=== PATIENT | male | born 1965 | race Caucasian/White ===

== ENCOUNTER 2024-10-17 12:18 | Emergency (ER) | payer OTHER, SELFPAY ==
[2024-10-17 12:21] VITALS: BP 117/65
--- NOTE | 2024-10-17 14:18 | EDRN ---
Harshil JIMENEZ in room w/ pt at this time.
--- NOTE | 2024-10-17 14:20 | ED.GENMED ---
History of Present Illness
General
Chief Complaint: Skin Problem
Source: patient
Exam Limitations: none
Time Seen by Provider: 10/17/24 13:58
History of Present Illness
History of Present Illness:
59yoM with a history of type 2 diabetes, hypertension, hyperlipidemia, and tobacco use presenting for evaluation of right great toe redness. Patient arrives with a wound to his right great toe but he is unsure how long this has been there. He
started to notice pain, redness, and swelling over the past 48 hours. Symptoms have been gradually worsening. He is having chills but denies any fevers. His glucose has been fluctuating over the past few days between 70 and 700.
Past History
Past History
ED Past Medical History: CAD, COPD, CVA (left sided weakness-minimal deficet), Hypercholesterolemia, IDDM, IA and Other (TIAs, diabetes, peripheral neuropathy, diabetic retinopathy,)
ED Past Surgical History: Other (Amputation L great toe)
Social History
Tobacco: Smoker
Alcohol: Occasional
Drug: None
Personal:
Living: with family
Family History
Family History: Diabetes
Phy Exam
General Physical Exam
General Presentation: well appearing and no apparent distress
General Skin: warm and dry
General Habitus: normal
General Mental: alert
ENT Exam
ENT Exam: normocephalic
Pulmonary Exam
Pulmonary Exam: no respiratory distress
Neurological Exam
Neurological Exam: alert
[place] Coma Scale
Eye Opening: Spontaneous
Verbal Response: Oriented
Motor Response: Obeys Commands
GCS Total Score: 15
Skin Exam
Skin Exam: other (Wound noted to plantar surface of R great toe with surrounding erythema/warmth extending to the dorsum of the foot. No drainage, fluctuance, or crepitus. 2+ DP pulse.)
Psychiatric Exam
Psychiatric Exam: normal mood/affect
Course
Orders/Labs/Results
Orders:
Orders
10/17/24 14:19
Bedside Glucose- Treatment ONCE
CR Toe(s) Min 2 Vw Right Urgent
Comment:
Reason For Exam: wound
10/17/24 14:50
CRP [C-Reactive Protein] Urgent
Complete Blood Count/With Diff Urgent
Comprehensive Metabolic Panel Urgent
ESR [Erythrocyte Sed Rate] Urgent
Lactic Acid Urgent
Blood Culture Q30M
ADY Source: Blood/Venous
Specimen Description:
10/17/24 15:39
Blood Culture Q30M
ADY Source: Blood/Venous
Specimen Description:
10/17/24 15:46
0.9% Sodium Chloride 1000 ml [Nss] 1,000 ml IV BOLUS
Cefepime HCl [Maxipime] 2,000 mg IV NOW STA
Vancomycin [Vancocin] 1,500 mg 0.9% Sodium Chloride 500 ml [Nss] 500 ml IV NOW
10/17/24 16:41
Admit/Transfer Patient As Directed
Co-Sign Provider:
Level of Care: Inpatient admission
Assign to:: Medical/Surgical
Physician / Group: julianna
Diagnosis: right toe ulcer/osteomyelitis
Reason for Hospitalization: right toe ulcer/osteomyelitis
Expected length of stay greater than two midnights?: Yes
ELOS- Estimated Length of Stay in days: 2
I certify the patient meets the requirements for IP care: Yes
PRN Pain Medication Management As Directed
May give lesser potent ordered pain med per pt: Yes
preference::
Protocol:: Medication orders for pain may be administered in a
manner that supports deferring to patient preference
when the pt is:
- Requesting an ordered lesser potent pain medication.
Least to most potent pain medications are defined
as: acetaminophen < NSAID < tramadol < opioids
(morphine, oxycodone, hydromorphone).
- Requesting a lesser dose of the same medication IF
ORDERED.
- Requesting a less intrusive route of administration
if both routes are prescribed by the provider (PO <
IV).
10/17/24 16:42
Code Status As Directed
Resuscitation Status: Full Code
10/17/24 17:37
Dextrose 50%-Water [Dextrose 50% Syringe] 12.5 grams IV [id number] PRN
Glucagon [GlucaGen] 1 mg IM PRN PRN
10/18/24 07:30
Insulin Aspart Corrective Low [Novolog Flexpen-Low Resistance] See Protocol SC AC
Insulin Regular, Human Pen [NovoLIN R Flexpen] 6 units SC AC
Abnormal Lab Results
10/17/24 10/17/24
14:24 14:50
Lymphocytes % 17.2 L %
(20.5-51.1)
ESR 26 H mm/hour
(0-20)
Sodium 129 L mmol/L
(135-145)
Chloride 93 L mmol/L
(98-107)
Carbon Dioxide 32 H mmol/L
(22-30)
Creatinine 0.6 L mg/dL
(0.7-1.3)
Glucose 373 H mg/dl
(70-99)
C-Reactive Protein 48.80 H mg/L
(0.0-10.00)
POC Glucose 420 H mg/dl
(70-99)
10/17/24 14:50
10/17/24 14:50
Vital Signs
Initial and Last Documented VS:
Initial Vital Signs
Temp Pulse Resp BP Pulse Ox
98.8 F 87 16 117/65 100
10/17/24 12:21 10/17/24 12:21 10/17/24 12:21 10/17/24 12:21 10/17/24 12:21
Last Documented Vital Signs
Temp Pulse Resp BP Pulse Ox
97.7 F 87 20 126/64 99
10/17/24 17:51 10/17/24 17:51 10/17/24 17:51 10/17/24 17:51 10/17/24 17:51
MDM/Problems Addressed
Differential Diagnosis Includes:
59yoM here with R great toe redness x 2 days. +Chills. Hx of diabetes. Vital signs stable. There is a wound noted to the plantar surface of the right great toe with surrounding cellulitis. No drainage or crepitus noted. Palpable DP pulse present
in right foot. Differential diagnosis includes but is not limited to: Cellulitis, osteomyelitis, sepsis
Initial ED plan: Check CBC, CMP, lactate, ESR/CRP, and toe x-ray.
*Pulse Oximetry
SaO2: 100
Oxygen Mode of Delivery: Room air
Patient hypoxic: no (100%)
*Critical Care Note
Total Time (30-74mins, 75-104mins- exclusive of procedures): Not Applicable
Update Note
Update Note:
Both ESR and CRP are elevated. White count and lactate normal. Glucose 373. X-rays show erosion at the proximal phalanx of the great toe which may indicate acute osteomyelitis. IV cefepime and vancomycin ordered. Patient admitted for further
management.
ED Attending Note
-
Portions of this chart may have been created with voice recognition software.� Occasional wrong word or��sound alike� substitutions may have occurred due to the inherent limitations of voice recognition software.
Discharge Plan
Departure
Patient Disposition: Admit
Date of Disposition: 10/17/24
Time of Disposition: 15:49
Presentation/result/management discussed w/ accepting MD/DO: Hospitalist
Discharge Problem:
Diabetic infection of right foot
Interventions
Interventions:
*Risk Screen - Suicide Last Done: 10/17/24 12:22
*General Assessment Last Done: 10/17/24 15:00
*Neglect/Abuse Screening Last Done: 10/17/24 12:22
*ED- Fall Risk Assessment Last Done: 10/17/24 15:00
*ED COVID-19 Vaccine History Last Done: 10/17/24 15:00
ED-Skin Assessment Last Done: 10/17/24 15:00
[2024-10-17 14:25] LABS: Glucose - Point of Care 420 mg/dl (70-99)
[2024-10-17 15:06] LABS: Hematocrit 40.8 % (39.0-52.0); Hemoglobin 14.4 g/dL (13.0-18.0); Mean Corp Hgb Conc. 35.3 g/dL (33.0-37.0); Mean Corpuscular Volume 86.6 fL (80.0-94.0); Nucleated Red Blood Cells % 0 % (-); Platelet Count 343 10^3/uL (130-400); Red Cell Dist. Width 12.1 % (11.5-14.5)
[2024-10-17 15:27] LABS: ALT (SGPT) 15 U/L (0-50); AST (SGOT) 20 U/L (17-59); Albumin 4.2 g/dl (3.5-5.0); Alkaline Phosphatase 91 U/L (38-126); Blood Urea Nitrogen 16 mg/dl (9-20); Calcium 9.7 mg/dl (8.4-10.2); Carbon Dioxide 32 mmol/L (22-30); Chloride 93 mmol/L (98-107); Glucose 373 mg/dl (70-99); Potassium 5.0 mmol/L (3.5-5.1); Sodium 129 mmol/L (135-145); Total Protein 6.7 g/dl (6.3-8.2); eGFR > 60.00
[2024-10-17 15:30] LABS: C-Reactive Protein 48.80 mg/L (0.0-10.00)
[2024-10-17 15:42] VITALS: BP 125/51
[2024-10-17 15:44] VITALS: BMI 17.6
--- NOTE | 2024-10-17 16:50 | HPS.HSE ---
Family Physician
-
Family Physician: Edin Lr
Chief Complaint
-
right toe wound infection
History of Present Illness
59-year-old male past medical history of diabetes, PAD status post toe amputation, CVA, CAD status post CABG, mild memory loss, hypertension, hyperlipidemia, tobacco use presenting for right great toe redness for the past few days with pain of the
foot.
Patient arrives with a wound of the right great toe but he is unsure how long this has been there. He started noticing pain, redness and swelling over the past 48 hours. He has chills without fever.
Blood sugars been fluctuating between 70-700. He takes 22 units of glargine in the morning and 6 units of Novolin before meals.
He states that he will get anxious and delirious in the hospital at times.
He smokes one third of a pack of cigarettes per day. Drinks alcohol occasionally.
Medical History
Past Medical History
Past Medical History: Reports Other (diabetes, PAD status post toe amputation, CVA, CAD status post CABG, mild memory loss, hypertension, hyperlipidemia, tobacco use)
Past Surgical History: Reports None
Social History
Tobacco: Smoker
Alcohol: None
Drug: None
Family History
Family History: Not pertinent
Allergies / Home Medications
Allergies reflects when Allergies were last updated in [employer].
Home Medications with original date entered in [employer]
Allergy/Medication List:
Allergies
Allergy/AdvReac Type Severity Reaction Status Date / Time
duloxetine HCl (From AdvReac SUICIDAL Verified 08/14/21 02:42
Cymbalta)
Home Medications
insulin glargine 100 unit/mL (3 mL) subcutaneous pen (Basaglar KwikPen U-100 Insulin) 22 unit SC DAILY 10/17/24
insulin regular human 100 unit/mL (3 mL) subcutaneous pen (Novolin R FlexPen) 6 unit SC AC 10/17/24
therapeutic multivitamin 1 tab PO DAILY 10/17/24
Review of Systems
-
Constitutional: Reports No Symptoms
EENT: Reports No Symptoms
Respiratory: Reports No Symptoms
Cardiac: Reports No Symptoms
Abdomen/GI: Reports No Symptoms
: Reports No Symptoms
Musculoskeletal: Reports No Symptoms
Skin: Reports See HPI
Neurological: Reports No Symptoms
Endocrine: Reports No Symptoms
Hematologic/Lymphatic: Reports No Symptoms
Psych: Reports No Symptoms
Physical Exam
Vital Signs
Vital Signs
Temp Pulse Resp BP Pulse Ox
98.8 F 64 16 125/51 99
10/17/24 12:21 10/17/24 15:42 10/17/24 15:42 10/17/24 15:42 10/17/24 15:42
Physical Exam
General: Well Developed, Well Nourished and No Apparent Distress
HEENT: NormoCephalic, Moist mucous membranes and Atraumatic
Respiratory: Clear
Cardiac: S1/S2 and Regular Rhythm; No Murmur or Rub
GI: Soft, Non Tender, Non Distended and Normal Bowel Sounds; No Organomegaly
Rectal: Deferred by Provider
Musculoskeletal: No Clubbing and No Cyanosis
Skin: Other (right toe necrotic ulcer with erythema, right foot pulses intact ); No Rash
Neuro: Nonfocal/grossly intact
Laboratory Results
-
10/17/24 14:50
10/17/24 14:50
Laboratory Results
Lactic Acid 1.4 mmol/L (0.7-2.0) 10/17/24 14:50
Total Bilirubin 0.7 mg/dl (0.2-1.3) 10/17/24 14:50
AST 20 U/L (17-59) 10/17/24 14:50
ALT 15 U/L (0-50) 10/17/24 14:50
Alkaline Phosphatase 91 U/L (38-126) 10/17/24 14:50
Data Reviewed
-
Lab Data: Labs Reviewed by me
Old Records: Reviewed
Impression/Plan
-
IMPRESSION:
PLAN:
# Right great toe wound with dry gangrene with surrounding cellulitis/osteomyelitis
#Hx of PAD with history of toe amputation
-PT and DP pulses strong
- X-ray shows 5 mm soft tissue wound medial to the distal phalanx of the left great toe with adjacent soft tissue swelling suggesting cellulitis, 5.3 mm osseous erosion in the medial side of the head of the proximal phalanx of the great toe which
could be acute osteomyelitis versus gouty arthritis
- Check blood cultures
- Vancomycin/Zosyn
- Podiatry consulted
- Vascular surgery consulted
- N.p.o. past midnight
# Hyperglycemia
# Type 2 diabetes
-Blood sugar 373
-Continue glargine 22 units and 6 units before meals
- Insulin sliding scale
Diabetic neuropathy
History of CVA
CAD status post CABG
- Does not appear to be on aspirin, statin anymore which he should be on
Mild memory loss
Hx of Delirium in Hospitals
Essential hypertension
Hyperlipidemia
Tobacco use
Full code
DVT prophylaxis�SCDs
Diabetic diet
[2024-10-17] MEDS: MAXIPIME 2000 MG IV (17:19)
--- NOTE | 2024-10-17 17:22 | CM ---
CM reviewed chart and met with pt and his father bedside in ED. Pt lives on second floor of 2 story home, father livers in first floor.
[address], full flight to second floor.
Independent in ADLs. personal care and ambulation at baseline. Only DME is glucometer.
Confirms prescription coverage.
No hx VN or SNF
PCP: Edin Lr
Pharmacy: [facility]
Anticipate discharge home, CM will continue to follow for any discharge planning needs.
[2024-10-17] MEDS: NSS 1000 IV (17:27)
[2024-10-17] MEDS: VANCOCIN 530 MG IV (17:27)
[2024-10-17] MEDS: XANAX 0.5 MG PO (17:45)
[2024-10-17 17:46] LABS: Glucose - Point of Care 296 mg/dl (70-99)
[2024-10-17 17:51] VITALS: BP 126/64
[2024-10-17] MEDS: NovoLIN R Flexpen 6 UNITS SC (18:05)
--- NOTE | 2024-10-17 18:30 | EDRN ---
Pt is in room fully dressed and repetitively keeps saying he does not want to stay in the hospital, that he is scared of hospitals. Pt states he goes crazy and flips out when admitted to the hospital. Pt refused low dose insulin coverage and would
only take the 6 units of regular because it would because it would be 2 injuections. Glucose was 96 and he would have gotten 6 units of regular insulin and [address] insulin[address] Gallagher informed and is talking to pt at this time.
--- NOTE | 2024-10-17 18:44 | EDRN ---
Dr. Gallagher in room w/ pt. Pt signed AMA paperwork w/ Dr. Gallagher. Pt cleaned up of blood on his arm and bandage placed of IV site that was bruised. Pt ambulated w/ family member out of ED. Pt recieved 50% if IVF and 2/3's of vancomycin.
--- NOTE | 2024-10-17 18:45 | W.PN.UPDATE ---
Update Note
Progress Note Update
Patient decided that he did not want to stay in the hospital despite understanding that the infection in his toe could progress without surgical management and further antibiotics and understand the risks of sepsis and even . He signed the AMA
form.
== END 2024-10-17 18:47 | disposition left against medical advice (07) ==
LOC: EMR 12:18
PROVIDERS: Physician Assistant; EMERGENCY PHYSICIAN Emergency Medicine; FAMILY PHYSICIAN Family Medicine
DX: E11.621 Type 2 diabetes mellitus with foot ulcer (principal); L03.031 Cellulitis of right toe; E11.65 Type 2 diabetes mellitus with hyperglycemia; E11.40 Type 2 diabetes mellitus with diabetic neuropathy, unspecified; E11.319 Type 2 diabetes mellitus with unspecified diabetic retinopathy without macular edema; I25.810 Atherosclerosis of coronary artery bypass graft(s) without angina pectoris; I10 Essential (primary) hypertension; E78.00 Pure hypercholesterolemia, unspecified; I69.354 Hemiplegia and hemiparesis following cerebral infarction affecting left non-dominant side; I25.2 Old myocardial infarction; J44.9 Chronic obstructive pulmonary disease, unspecified; R41.3 Other amnesia; F17.210 Nicotine dependence, cigarettes, uncomplicated; Z79.4 Long term (current) use of insulin; Z89.412 Acquired absence of left great toe
CPT/HCPCS: 99284; 96374; 96375; 96361; 96372; 73660; 80053; 82962; 83605; 85025; 85652; 86140; 87040